=== PATIENT | female | born 2005 | race Caucasian/White ===

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

== ENCOUNTER 2023-09-29 13:45 | Outpatient (CLI) | payer OTHER, SELFPAY ==
[2023-09-29 12:58] LABS: Basophils % 0.4 % (0.1-2.0); Eosinophils # 0.2 K/mm3 (0.0-0.4); Hematocrit 45.5 % (37.0-47.0); Hemoglobin 15.2 g/dL (12.2-16.2); Lymphocytes # 1.9 K/mm3 (0.7-4.5); Mean Corpuscular HGB Conc 33.4 g/dL (31.8-35.4); Mean Corpuscular Hemoglobin 29.5 pg (27.0-31.2); Mean Corpuscular Volume 88.4 fl (81-99); Mean Platelet Volume 9.6 fl (7.4-10.4); Monocytes # 0.3 K/mm3 (0.1-1.0); Monocytes % 4.2 % (1.7-9.3); Neutrophils % 62.6 % (37.0-80.0); Platelet Count 273 K/mm3 (142-424); Red Blood Count 5.15 M/mm3 (4.20-5.40); Red Cell Distribution Width 12.6 % (11.5-17.5); White Blood Count 6.4 K/mm3 (4.5-13.0)
[2023-09-29 12:59] LABS: Alanine Aminotransferase 23 U/L (12-78); Albumin Level 4.3 g/dl (3.5-5.0); Albumin/Globulin Ratio 1.7 (1.1-1.8); Alkaline Phosphatase 63 U/L (38-126); Anion Gap 11.1 mEq/L (5-15); Aspartate Amino Transferase 27 U/L (14-36); Bilirubin,Total 0.4 mg/dl (0.2-1.3); Blood Urea Nitrogen 5 mg/dl (7-17); Calcium 8.6 mg/dl (8.4-10.2); Carbon Dioxide 26 mmol/L (22.0-30.0); Chloride 103 mmol/L (98-107); Estimated Glomerular Filt Rate 91 ml/min (>60); GFR (African American) 111 ML/MIN (>60); Globulin 2.6 g/dL (1.3-3.2); Glucose 92 mg/dl (74-100); Potassium 4.1 mmoL/L (3.5-5.1); Sodium 136 mmol/L (136-145); Total Protein,Serum 6.9 g/dl (6.3-8.2)
[2023-09-29 13:04] LABS: C-Reactive Protein 8.3 mg/L (0-4)
[2023-09-29 13:22] LABS: Erythrocyte Sedimentation Rate 5 mm/hr (0-20)
[2023-09-29 13:49] LABS: 25-OH Vitamin D, Total 41.3 ng/mL (30-100)
[2023-09-29 14:03] LABS: Thyroid Stimulating Hormone 1.61 uIU/mL (0.465-4.68)
[2023-09-29 14:08] LABS: Ferritin 17.1 ng/ml (6.24-137)
[2023-09-29 14:22] LABS: Vitamin B12 673 pg/mL (239-931)
[2023-09-30 11:31] LABS: Anti-Centromere B Antibodies <0.2 AI (0.0-0.9); Anti-DNA (DS) Ab Qn <1 IU/mL (0-9); Anti-Jo-1 <0.2 AI (0.0-0.9); Anti-Smith Antibody <0.2 AI (0.0-0.9); Antichromatin Antibodies <0.2 AI (0.0-0.9); Antiscleroderma-70 Antibodies <0.2 AI (0.0-0.9); RNP Antibodies 0.2 AI (0.0-0.9); Sjogren's Anti-SS-A <0.2 AI (0.0-0.9); Sjogren's Anti-SS-B <0.2 AI (0.0-0.9)
[2023-09-30 12:11] LABS: RA Latex Turbid. <10.0 IU/mL (<14.0)
[2023-09-30 13:09] LABS: Anti-Cyclic Citrullinated Pept 6 units (0-19)
== END 2023-09-29 23:59 ==
LOC: LAB.DROPOF 13:45
PROVIDERS: PCP Physician Assistant; Visit Provider Physician Assistant
DX: M79.641 Pain in right hand (principal); M25.531 Pain in right wrist; M25.50 Pain in unspecified joint; Z82.61 Family history of arthritis
CPT/HCPCS: 80053; 82306; 82607; 82728; 83735; 84443; 85025; 85651; 86140; 86200; 86225; 86235; 86431

== ENCOUNTER 2024-10-15 08:12 | Outpatient (CLI) | payer OTHER, SELFPAY ==
[2024-10-15 08:49] LABS: Basophils % 0.5 % (0.1-2.0); Eosinophils # 0.2 K/mm3 (0.0-0.4); Eosinophils % 2.9 % (0.1-12.0); Hematocrit 40.4 % (37.0-47.0); Hemoglobin 13.5 g/dL (12.2-16.2); Lymphocytes # 1.2 K/mm3 (0.7-4.5); Lymphocytes % 22.6 % (10-50); Mean Corpuscular HGB Conc 33.4 g/dL (31.8-35.4); Mean Corpuscular Hemoglobin 28.7 pg (27.0-31.2); Monocytes # 0.4 K/mm3 (0.1-1.0); Monocytes % 6.8 % (1.7-9.3); Neutrophils # 3.7 K/mm3 (1.8-7.8); Neutrophils % 67.2 % (37.0-80.0); Platelet Count 231 K/mm3 (142-424); Red Cell Distribution Width 12.2 % (11.5-17.5); White Blood Count 5.5 K/mm3 (4.8-10.8)
[2024-10-15 09:52] LABS: Albumin Level 4.4 g/dl (3.5-5.0)
[2024-10-15 09:53] LABS: Chloride 103 mmol/L (98-107); Potassium 4.6 mmoL/L (3.5-5.1); Sodium 134 mmol/L (136-145)
[2024-10-15 09:55] LABS: Alanine Aminotransferase 24 U/L (12-78); Albumin/Globulin Ratio 2.2 (1.1-1.8); Alkaline Phosphatase 67 U/L (38-126); Anion Gap 11.6 mEq/L (5-15); Aspartate Amino Transferase 24 U/L (14-36); Bilirubin,Total 0.2 mg/dl (0.2-1.3); Blood Urea Nitrogen 6 mg/dl (7-17); Carbon Dioxide 24 mmol/L (22.0-30.0); Estimated Glomerular Filt Rate 126 ml/min (>60); GFR (African American) 153 ML/MIN (>60); Total Protein,Serum 6.4 g/dl (6.3-8.2)
[2024-10-15 09:56] LABS: Calcium 9.5 mg/dl (8.4-10.2); Chol/HDL Ratio 3.2 (1-3.5); Cholesterol 124 mg/dl (140-200); Glucose 90 mg/dl (74-100); HDL Cholesterol 39 mg/dl (40-60); Iron 41 ug/dL (37-170); Magnesium 1.9 mg/dl (1.6-2.3); Triglycerides 69 mg/dl (30-150); VLDL Cholesterol 14 mg/dL (0-40)
[2024-10-15 10:07] LABS: Direct LDL Cholesterol 68.28 mg/dL (100-129); Total Iron Binding Capacity 388 ug/dL (265-497)
[2024-10-15 10:13] LABS: 25-OH Vitamin D, Total 46.5 ng/mL (30-100); T4 (Thyroxine) 8.8 ug/dl (5.53-11.0)
[2024-10-15 10:27] LABS: Thyroid Stimulating Hormone 0.92 uIU/mL (0.465-4.68)
[2024-10-15 10:46] LABS: Hepatitis C Ab Qual. W/ RFX NEGATIVE (Negative)
[2024-10-15 11:32] LABS: HIV Combo NEGATIVE (Negative)
== END 2024-10-15 23:59 | disposition home or self-care (01) ==
PROVIDERS: PCP Nurse Practitioner Family; Visit Provider Nurse Practitioner Family
DX: Z00.00 Encounter for general adult medical examination without abnormal findings (principal); R53.83 Other fatigue; E55.9 Vitamin D deficiency, unspecified
CPT/HCPCS: 36415; 80053; 80061; 82306; 83540; 83550; 83735; 84436; 84443; 85025; 86803; 87389

== ENCOUNTER 2024-12-16 13:29 | Outpatient (CLI) | payer OTHER, SELFPAY ==
--- NOTE | 2024-12-16 13:29 | US_ITS ---
PROCEDURE INFORMATION: Exam: US Left Breast, Complete US Right Breast, Complete, Abscess Evaluation Exam date and time: 12/16/2024 1:45 PM Age: 19 years old Clinical indication: Bilateral breast pain TECHNIQUE: Imaging protocol: Complete ultrasound of all four quadrants of the left breast and the retroareolar regions, including ultrasound of the axilla when performed. Right Ultrasound of the breast with image documentation. All quadrants and retroareolar regions evaluated. Exam focused on the search and evaluation for abscess. Exam is an emergent request and a non-BIRADS study. COMPARISON: No relevant prior studies available. FINDINGS: ULTRASOUND: Breast ultrasound findings: Sonographic images of both breasts including the retroareolar regions, all 4 quadrants and the axilla do not demonstrate any solid or cystic masses. No architectural distortion or acoustical shadowing. No skin thickening or axillary adenopathy. IMPRESSION: No sonographic evidence of malignancy. ASSESSMENT: BI-RADS Category 1: Negative.
== END 2024-12-16 23:59 | disposition home or self-care (01) ==
LOC: RAD 13:29
PROVIDERS: PCP Nurse Practitioner Family; Visit Provider Nurse Practitioner Family
DX: N64.4 Mastodynia (principal)
CPT/HCPCS: 76641